=== PATIENT | male | born 1955 | race Caucasian/White ===

== ENCOUNTER 2017-10-20 11:09 | Day surgery (SDC) | payer MEDICARE ==
[~2017-10-20] VITALS: Ht 165.1 cm; Wt 79.4 kg
[~2017-10-20 11:09] MED LIST: ALBU90OI INH; ASCO500 PO; BENTYL10 MG; BUDE6HFA INH; Bentyl10 MG/ML PO; CHOL10002 PO; CHOLEST OFF PL450 MG PO; CYCL10 PO; DONE10 PO; GABA100 PO; NORT25 PO; ONE DAILY FOR1 EAC1 PO; PROM25 PO; PSEU120ER PO; SUMA25 PO; TAMS.4ER PO; TRAZ100 PO; Vitamin C100 M1 PO; Zantac150 MG PO
== END 2017-10-20 23:03 | disposition home or self-care (01) ==
LOC: ORSCMMR 11:09 → ORD 12:30 → ORSCMMR 14:15
PROVIDERS: Internal Medicine Gastroenterology
PROC: 0D758ZZ Dilation of Esophagus, Via Natural or Artificial Opening Endoscopic (ICD-10-PCS; principal; 2017-10-20 14:15)
PROC: 0DB68ZX Excision of Stomach, Via Natural or Artificial Opening Endoscopic, Diagnostic (ICD-10-PCS; principal; 2017-10-20 14:15)
DX: R13.10 Dysphagia, unspecified (principal); K31.7 Polyp of stomach and duodenum; K25.9 Gastric ulcer, unspecified as acute or chronic, without hemorrhage or perforation; K21.9 Gastro-esophageal reflux disease without esophagitis; G47.33 Obstructive sleep apnea (adult) (pediatric); Z98.890 Other specified postprocedural states; Z79.899 Other long term (current) drug therapy; K90.0 Celiac disease
CPT/HCPCS: 88305; 88342; J7120

== ENCOUNTER 2020-04-14 06:17 | Day surgery (SDC) | payer MEDICARE ==
[~2020-04-14] VITALS: Ht 165.1 cm; Wt 69.2 kg
--- NOTE | 2020-04-14 08:18 | NUR ---
04/14/20 0818 Alverto Samaniego 1MG EPI ADDED TO FIRST 3 LACTACTED RINGER'S IRRIGATION BAGS FOR A TOTAL OF 3MG EPI PER DR. VERDUZCO'S ORDERS.
--- NOTE | 2020-04-14 09:27 | NUR ---
04/14/20 0927 Elvira Batres PT IN RECINER AT THIS TIME. VSS. PT TOLERATING PO FLUIDS WELL. PT STATES PAIN AND NAUSEA ARE TOLERABLE. RN WENT OVER INSTRUCTIONS ON INCENTIVE SPIROMETER; PT DEMO INCENTIVE SPIROMETER X3. PT'S SATS ARE 97% ON ROOM AIR. POLAR UNIT IS HOOKED UP AND ON. PT READY FOR ADDITIONAL DISCHARGE TEACHING.
== END 2020-04-14 10:08 | disposition home or self-care (01) ==
LOC: ORSCSDS 06:17
PROVIDERS: Orthopaedic Surgery
PROC: 0RNK4ZZ Release Left Shoulder Joint, Percutaneous Endoscopic Approach (ICD-10-PCS; principal; 2020-04-14 07:30)
PROC: 0LS44ZZ Reposition Left Upper Arm Tendon, Percutaneous Endoscopic Approach (ICD-10-PCS; principal; 2020-04-14 07:30)
PROC: 0LQ24ZZ Repair Left Shoulder Tendon, Percutaneous Endoscopic Approach (ICD-10-PCS; principal; 2020-04-14 07:30)
PROC: 0MM24ZZ Reattachment of Left Shoulder Bursa and Ligament, Percutaneous Endoscopic Approach (ICD-10-PCS; principal; 2020-04-14 07:30)
DX: M75.112 Incomplete rotator cuff tear or rupture of left shoulder, not specified as traumatic (principal); M75.22 Bicipital tendinitis, left shoulder; M75.42 Impingement syndrome of left shoulder; M75.32 Calcific tendinitis of left shoulder; J45.909 Unspecified asthma, uncomplicated; G47.33 Obstructive sleep apnea (adult) (pediatric); K21.9 Gastro-esophageal reflux disease without esophagitis; Z79.899 Other long term (current) drug therapy
CPT/HCPCS: 82947; C1713; J0171; J0690; J1100; J2001; J2250; J2370; J2405; J2550; J2704; J2710; J3010; J7120

== ENCOUNTER → 2021-10-19 | Outpatient (CLI) | payer MEDICARE | END | disposition home or self-care (01) | LOC: LAB SHORT 16:54 → LAB 16:54 | DX: R07.89 Other chest pain (principal) | CPT/HCPCS: 84484 ==